=== PATIENT | female | born 2000 | race African-American/Black ===

== ENCOUNTER 2023-04-14 11:08 | Emergency (ER) | payer OTHER, SELFPAY ==
[2023-04-14 11:09] VITALS: BP 128/86; PULSE 96; RESP 18; TEMP 35.8; O2SAT 99
--- NOTE | 2023-04-14 11:55 | NURSING ---
NO OLD EKGS
--- NOTE | 2023-04-14 12:32 | EKG12_ITS ---
Test Reason : Blood Pressure : / mmHG Vent. Rate : 075 BPM Atrial Rate : 075 BPM P-R Int : 154 ms QRS Dur : 086 ms QT Int : 348 ms P-R-T Axes : 074 055 040 degrees QTc Int : 388 ms Normal sinus rhythm with sinus arrhythmia Normal ECG Confirmed by GLORIA HENRIQUEZ, JOSSELIN ([id number]), continuity editor ASHLEY GUAJARDO ([id number]) on 04/15/2023 12:06:06 PM Referred By: Confirmed By:JOSSELIN CASTRO MD
--- NOTE | 2023-04-14 12:33 | EDS_ITS ---
HPI History of Present Illness Chief Complaint: Syncope Narrative Narrative: Presents to ED evaluation from the rapid response team upstairs. Patient precepting in the PCU. She was covering over preceptor watch and EEG, she states she felt warm and flushed, shortly after she was on the ground. No prodromal chest pains or shortness of breath. Patient felt fine this morning states a light breakfast due to eating heavy dinner. No vomiting or diarrhea. No urinary symptoms. States had upper respiratory illness a week ago that is resolved. Last menstrual period little over 2 weeks ago. Denies abdominal pain. Denies chest pains. Currently feeling back to normal. Denies any c hronic past medical history. Prior similar symptoms: No PFSH PFSH Allergy/AdvReac Type Severity Reaction Status Date / Time No Known Allergies Allergy Verified 04/14/23 11:09 ROS ROS ED Constitutional Constitutional ED: Denies chills, fever(s) or sweats Eyes Eyes: Denies change in vision ENT ENT ED: Denies dysphagia or sore throat Cardiovascular Cardiovascular: Reports other Details: Syncope ; Denies chest pain, leg edema, palpitations or racing heartbeat Respiratory/Chest Respiratory/Chest: Denies cough, dyspnea or dyspnea on exertion Gastrointestinal Gastrointestinal: Denies abdominal pain, diarrhea, nausea or vomiting Genitourinary Genitourinary ED: Denies dysuria, hematuria or urinary frequency Musculoskeletal Musculoskeletal: Denies back pain, extremity pain or neck pain Integumentary Denies rash or wounds Neurologic Neurologic: Denies headache(s), paresthesias or weakness EXAM Physical Exam Const Vital Signs: 04/14/23 11:09 Temperature 96.4 F L Temperature Source Temporal Pulse Rate 96 Respiratory Rate 18 Blood Pressure 128/86 H Blood Pressure Mean 100 Pulse Ox 99 Oxygen Delivery Method Room Air Positive well nourished and well developed General Appearance ED: well developed and NAD HEENT Reports moist mucous membranes normocephalic and atraumatic Eyes PERRL, EOMs intact bilaterally and conjunctivae normal General Eye ED: Yes normal appearance of both eyes Neck no lymphadenopathy and supple General: Negative for tenderness Chest Wall Chest: Negative for tenderness Resp normal respiratory effort and normal air movement Effort and Inspection: symmetric chest movement; Negative for respiratory distress Cardio regular rate, regular rhythm and no murmurs Peripheral Pulses: pulses 2+ throughout GI normal to inspection, nondistended, normoactive bowel sounds and non-tender Palpation: Negative for guarding or rebound tenderness present Back/Spine no CVA tenderness and no thoracic nor lumbar tenderness Extremity normal to inspection General Extremety ED: Negative for edema or tenderness General Extremity: Negative for edema Neuro oriented x3, CN's II-XII intact bilaterally and no sensory deficits noted Neuro Narrative: No focal deficits Sensorium / Orientation: awake and alert Skin no rashes or lesions noted and no wounds MDM MDM MDM Narrative Medical decision making narrative: Interventions / MDM: Differential diagnosis: Vasovagal syncope, Diagnosis considered but do not suspect: Cardiac dysrhythmia, My EKG interpretation: Sinus rate of 75, no ST or T wave changes QTc 388 Imaging independently reviewed and interpreted by myself: N/A External documents reviewed: N/A Test considered but not ordered:N/A ED course: She is consistent with a vasovagal syncopal episode. EKG obtained which was normal. No return of symptoms vitals remained stable she has been ambulated department no return of symptoms. She does have a PCP states outpatient follow-up with strict return precautions. All questions were answered. Re-evaluation: stable Disposition discussed with patient/family/significant other: Case discussed with consulting clinician: N/A This note was generated with [employer] (formerly [employer]) dictation software. It may contain incorrect words, spelling, and punctuation that were not noted in checking the note before signing. Discharge Plan Triage Chief Complaint: Syncope ED Provider: Gian Beaver Dx/Rx/DC Orders Clinical Impression: Syncope, vasovagal Instructions: ED Fainting, Vagal Reaction Primary Care Provider: Care Physician,No Primary Referrals: Care Physician,No Primary [Primary Care Provider] - Activity Restrictions/Additional Instructions: History consistent with vasovagal syncope. EKG is normal. Follow-up with your doctor. Return if any recurrent symptoms. Disposition Disposition: Home, Self Care
[2023-04-14 12:46] LABS: Bedside Glucose 109 mg/dL (74-106)
== END 2023-04-14 12:41 | disposition home or self-care (01) ==
PROVIDERS: Emergency Provider Emergency Medicine; Visit Provider Emergency Medicine
DX: R55 Syncope and collapse (principal)
CPT/HCPCS: 82962; 93005; 99282